=== PATIENT | male | born 1940 | race Caucasian/White ===

== ENCOUNTER 2016-11-29 14:44 | Emergency (ER) | payer MEDICARE, OTHER ==
[~2016-11-29 14:44] MED LIST: CARAFATE DPS1 GM PO; MIRALAX PACKET17 GM PO; NEURONTIN DPS100 MG PO; OXYCODONE-ACET1 EAC1 PO; PEPCID DPS20 MG PO; PROVENTIL HFA6.7 GM IH; REGLAN DPS5 MG PO; REMERON DPS15 MG PO; SURFAK DPS240 MG PO; TYLENOL DPS325 MG PO; XYLOCAINE TP
--- NOTE | 2016-12-05 11:08 | ER ---
ADMIT: 11/29/2016 RM/LOC: ER [facility] MR#: [id number] [address] [id number] NIRAV ADAN [address] [place] [address] Emergency Room Report SEX: M AGE: 76 : 1940 DATE: 11/29/2016 ADDENDUM: A 76-year-old white male with myelodysplastic syndrome, coming in with palpitations of the heart. He has atrial fib at a rate of about 148. He has never really had this before. He was also a little bit hypotensive. He is an oncology patient and so his fluid may be a little bit behind, especially with some of the medications he is taking. We wrote for 150 of amiodarone, 125 of which he used to slow him down, he actually converted on that. At this time, his repeat EKG was normal sinus. His laboratory; white count is 1.6, which is about his range for dysthymic. His hemoglobin is 9.8, which is up. His platelets were 7. I did speak with Dr. Garcia on this. He got 1 unit of platelets here. His chemistry was normal. I also spoke with Dr. Maya about his atrial fibrillation. Since he converted on his own with a little bit of medication. Then, we are going to discharge him home. He is on prophylactic antibiotics and antifungal for his myelodysplastic syndrome. His hypotension I think is due to volume loss and we had given him about 3 L of fluid. His pressure came up, he did fine. He has no fever whatsoever. Discussed the case with Dr. Maya and Dr. Garcia, so we are going to discharge him home with instructions to be followed up on Thursday. He should call up for an appointment. If he has problems over the weekend, he may return. CONDITION ON DISCHARGE: Improved. Syed Valles MD/ tashi JOB #: [id number] CC: Syed Valles MD, Attending Physician Stan Mooney MD, Family Physician
[2017-03-15] MEDS ORDERED: PEPCID DPS20 MG PO (12:39)
[2017-03-15] MEDS ORDERED: MEGACE DPS40 MG/ML PO (12:39)
[2017-03-15] MEDS ORDERED: CARAFATE DPS1 GM PO (12:39)
[2017-03-15] MEDS ORDERED: CORDARONE DPS200 MG PO (12:39)
[2017-03-15] MEDS ORDERED: REMERON30 MG PO (12:40)
[2017-03-15] MEDS ORDERED: PRESERVISION A1 EACH PO (12:40)
[2017-03-15] MEDS ORDERED: MIRALAX PACKET17 GM PO (12:40)
[2017-03-15] MEDS ORDERED: DULCOLAX-DPS10 MG PO (12:40)
[2017-03-15] MEDS ORDERED: CITROMA DPS300 ML PO (12:41)
[2017-03-15] MEDS ORDERED: TYLENOL DPS325 MG PO (12:41)
[2017-03-15] MEDS ORDERED: OMNICEF DPS300 MG PO (12:41)
[2017-03-15] MEDS ORDERED: MAALOX DPS30 ML PO (12:41)
[2017-04-23] MEDS ORDERED: DUONEB DPS3 ML IH (12:26)
[2017-04-23] MEDS ORDERED: LIDOCAINE VISCO15 ML PO (12:27)
[2017-04-23] MEDS ORDERED: CHLORASEPTIC SPR6 OZ PO (12:27)
== END 2016-11-29 21:20 | disposition home or self-care (01) ==
LOC: ER 14:44
DX: I48.0 Paroxysmal atrial fibrillation (principal); D69.6 Thrombocytopenia, unspecified; D46.9 Myelodysplastic syndrome, unspecified; Z88.0 Allergy status to penicillin; E11.9 Type 2 diabetes mellitus without complications